=== PATIENT | female | born 1970 | race Caucasian/White ===

== ENCOUNTER 2020-11-19 09:48 | Emergency (ER) | payer OTHER ==
[~2020-11-19] VITALS: Ht 165.1 cm; Wt 102.1 kg
[~2020-11-19 09:48] MED LIST: AUGMENTIN 875875 M1 PO; AUGMENTIN 875875 MG PO; CELEXA20 MG PO; HYDROCODONE-AP1 EAC6 PO; NAPROSYN500 MG PO; NEURONTIN 300300 M1 PO; NORCO 5-325 TA1 EACH PO; PROZAC40 MG; XANAX 0.5 MG0.5 MG PO
[2020-11-19] MEDS ORDERED: MACROBID 100 M100 MG PO (10:17)
[2020-11-19] MEDS ORDERED: COZAAR 25 MG TA25 M1 PO (10:18)
[2020-11-19] MEDS ORDERED: METHOCARBAMOL500 M2 PO (10:18)
[2020-11-19 11:00] LABS: HEMATOCRIT 39.6 % (37.0-47.0); HEMOGLOBIN 13.3 gm/dL (12.0-15.0); MCH 30.9 pg (26.0-34.0); MCHC 33.5 g/dL (28.0-37.0); MCV 92.2 fL (80.0-100.0); MPV 7.6 fl. (7.2-11.1); RBC 4.3 mil/uL (4.20-5.00); RDW-CV 14.8 % (10.5-14.5); WBC 6.1 thou/uL (4.0-11.0)
[2020-11-19 11:16] LABS: CALCIUM 8.6 mg/dL (8.5-10.1); CREATININE 0.8 mg/dL (0.6-1.3); POTASSIUM 3.8 mmol/L (3.5-5.1)
[2020-11-19 12:14] VITALS: BP 147/99
== END 2020-11-19 12:15 | disposition home or self-care (01) ==
LOC: M.ERS 09:48
PROVIDERS: Emergency Medicine Emergency Medical Services
DX: I83.91 Asymptomatic varicose veins of right lower extremity (principal); M79.604 Pain in right leg; Z88.5 Allergy status to narcotic agent; Z79.899 Other long term (current) drug therapy; Z90.710 Acquired absence of both cervix and uterus; Z98.890 Other specified postprocedural states